=== PATIENT | male | born 1980 | race Hispanic/Latino ===

== ENCOUNTER 2017-03-27 07:54 | Inpatient (IN) | payer MEDICARE, MEDICAID ==
[2017-03-27 07:55] VITALS: BMI 25.7
[2017-03-27 08:06] VITALS: O2SAT 98
--- NOTE | 2017-03-27 08:13 | C.PDOC ---
History Of Present Illness 37 year old male who presents to the ER as a transfer from [facility] for psychiatric admission for suicidal ideation. Patient denies any physical complaints at this time. Time Seen by Provider: 03/27/17 08:00 Chief Complaint (Nursing): Psychiatric Evaluation History Per: Patient History/Exam Limitations: no limitations Onset/Duration Of Symptoms: Hrs Current Symptoms Are (Timing): Still Present Suicide/Self Injury Attempted (Context): None Modifying Factor(s): None Associated Symptoms: Suicidal Thoughts. denies: Depression, Suicidal Plan Involuntary Hold By: None Recent travel outside of the [place]: No Past Medical History Reviewed: Historical Data, Nursing Documentation, Vital Signs Vital Signs: Last Vital Signs Temp 97.9 F 03/27/17 08:00 Pulse 66 03/27/17 08:00 Resp 16 03/27/17 08:00 BP 100/60 03/27/17 08:00 Pulse Ox 98 03/27/17 08:13 - Medical History PMH: Anxiety, Bipolar Disorder, Depression, Schizophrenia Surgical History: No Surg Hx - [facility] Procedures MEDICATION MANAGEMENT (03/06/17) Family History: States: Unknown Family Hx - Social History Hx Alcohol Use: Yes Hx Substance Use: Yes - Immunization History Hx Tetanus Toxoid Vaccination: No Hx Influenza Vaccination: No Hx Pneumococcal Vaccination: No Review Of Systems Constitutional: Negative for: Fever, Chills Gastrointestinal: Negative for: Nausea, Vomiting, Diarrhea Psych: Positive for: Suicidal ideation Physical Exam - Physical Exam Appears: Non-toxic, No Acute Distress Skin: Normal Color, Warm, Dry Head: Atraumatic, Normacephalic Oral Mucosa: Moist Chest: Symmetrical, No Tenderness Cardiovascular: Rhythm Regular, No Murmur Respiratory: Normal Breath Sounds, No Rales, No Rhonchi, No Wheezing Gastrointestinal/Abdominal: Soft, No Tenderness Neurological/Psych: Oriented x3, Normal Speech, Normal Cognition ED Course And Treatment O2 Sat by Pulse Oximetry: 98 (Room air) Pulse Ox Interpretation: Normal Disposition Counseled Patient/Family Regarding: Studies Performed, Diagnosis, Need For Followup - Disposition Disposition: HOSPITALIZED Disposition Time: 08:11 Condition: GUARDED - Clinical Impression Clinical Impression: Schizophrenia, Suicidal ideations - Scribe Statement The provider has reviewed the documentation as recorded by the Scribalexander Levy All medical record entries made by the Scribe were at my direction and personally dictated by me. I have reviewed the chart and agree that the record accurately reflects my personal performance of the history, physical exam, medical decision making, and the department course for this patient. I have also personally directed, reviewed, and agree with the discharge instructions and disposition. Decision To Admit - Pt Status Changed To: Hospital Disposition Of: Inpatient - Admit Certification Admit to Inpatient:: After my assessment, the patient will require hospitalization for at least two midnights. This is because of the severity of symptoms shown, intensity of services needed, and/or the medical risk in this patient being treated as an outpatient. - InPatient: Physician Admission Certification: I certify that this patient requires 2 or more midnights of care for the following reason:: suicidal - . Bed Request Type: Psychiatry Admitting Physician: Rivka Rasmussen Patient Diagnosis: Schizophrenia, Suicidal ideations
--- NOTE | 2017-03-27 13:42 | PCM.BM ---
<Delma Perkins - Last Filed: 03/27/17 13:39> Treatment Plan Problems - Problems identified on initial assessmt Depression Date Initiated: 03/27/17 Time Initiated: 13:40 Assessment reference: NA Status: Active Treatment assets and liabiliti Patient Assests: cooperative, ADL independent, good support system, good past tx response, cognitively intact Patient Liabilities: live alone (Homeless), poor support system - Milieu Protocol Maintain good personal hygiene: daily Encourage regular showers Maintain personal safety: every shift Educate patient to report safety concerns to staff, every shift Monitor environment for contraband/sharps Medication safety: Monitor for expected outcome, potential side effects: every shift, Assess barriers to learning: every shift, Assess readiness for medication education: every shift <Rose John - Last Filed: 03/31/17 14:00> Family Contact Family involvement: Famliy/SO not involved - Goals for Treatment Patient goals for treatment: No comment Discharge/Continuing Care - Education Needs Education Needs: Patient Medication, Patient Coping Skills, Patient Community resources - Discharge Discharge Criteria: Tolerates medication w/o severe side effects, No longer exhibiting s/s of withdrawal, Reduction of target symptoms Discharge to:: Group Home - Treatment Team Participation Patient/Family/SO Statement: 03/31/17 13:59 Pt refused to attend treatment team. Discussed with Family/SO: No Was Patient/Family/SO present at Treatment Team Meeting: No <Nadya Cardenas - Last Filed: 04/01/17 13:37> - Diagnosis (1) Schizophrenia Status: Acute Interventions: 04/01/17 13:36 * Assess/adjust medications daily and /or as needed * Discuss risks, benefits, sided effects and alternatives of medications * See patient on an individual basis 7x/week to assess level of delusional thoughts/ideation
--- NOTE | 2017-03-27 21:59 | PCM.PSYCH ---
Initial Psychiatric Evaluation - Initial Psychiatric Evaluation Type of Admission: Voluntary Legal Status: Capacity Chief Complaint (in patient's own words): I have depression History of Present Illness and Precipitating Events: Patient is a single, homeless 37-year-old white male with a history of schizoaffective disorder as well as cocaine, heroin and alcohol abuse, multiple prior admissions- most recently discharged from [facility] in 02/2017 and [facility] 4 days ago . He was transferred from [facility] for psychiatric admission for suicidal ideation. His utox was positive for Cocaine. He stated that he is off from meds for few days and needs to be start on his meds. He stated that he is homeless. At the time of evaluation pt was not cooperative as he was sleeping for many hours. He reported that he is feeling safe. He denied SI, HI, intent or plan. At this time not able to assess him completely. He denied A/V/H, paranoid delusions Per chart review he was d/c from in 12/2016. SOCIAL HISTORY Patient was born and raised in [place]. He is not and has no children. Currently homeless. He graduated high school and he is unemployed Time spend 30 minutes Current Medications: Active Medications Generic Name Dose Route Start Last Admin Trade Name Freq PRN Reason Stop Dose Admin Hydroxyzine HCl 25 mg 03/27/17 14:44 Atarax PO Q6H PRN Anxiety Ibuprofen 600 mg 03/27/17 14:43 Motrin Tab PO TID PRN Pain, Mild (1-3) Olanzapine 10 mg 03/27/17 14:45 03/27/17 17:49 Zyprexa PO 10 mg DAILY CURTIS Administration Oxcarbazepine 300 mg 03/27/17 18:00 03/27/17 17:47 Trileptal PO 300 mg BID CURTIS Administration Sertraline HCl 100 mg 03/27/17 14:45 03/27/17 17:46 Zoloft PO 100 mg DAILY CURTIS Administration Trazodone HCl 50 mg 03/27/17 22:00 Desyrel PO HS PRN Insomnia Past Psychiatric History - Past Psychiatric History Prior Psychiatric Treatment: multiple prior admission including [facility], [facility]: [facility], [facility] Duration: days to weeks Nature of Treatment: stabilization on meds History of Abuse: denied History of ETOH/Drug Use: Patient reports that he has been using cocaine for a couple months and smoking weed for many years. He denies any history of heroin or alcohol problems. Reports a history of being in rehab for weed use however this was a very long time ago. Patient smokes two packs of cigarettes daily. Patient was apprised about the morbidity and mortality risks of continued tobacco/drug use. He was offered a patch which he agreed to to help with nicotine withdrawal/abstinence History of Family Illness: denied Pertinent Medical Hx (Current Medical&Sleep Prob, Allergies): Allergies Allergy/AdvReac Type Severity Reaction Status Date / Time No Known Allergies Allergy Verified 03/27/17 08:06 Nicotine 21 mg/24 hr [Nicoderm Cq] 1 patch TD DAILY #14 patch 03/09/17 OLANZapine [Zyprexa] 10 mg PO AMHS #14 tab 03/09/17 OXcarbazepine [Trileptal] 300 mg PO BID #30 tab 03/09/17 Sertraline [Zoloft] 100 mg PO BID #30 tab 03/09/17 Zaleplon [Sonata] 10 mg PO HS PRN #14 cap 03/09/17 clonazePAM [Klonopin] 0.5 mg PO DAILY #14 tab 03/09/17 Review of Systems - Review of Systems All systems: reviewed and no additional remarkable complaints except (please see HPI) Mental Status Examination - Personal Presentation Personal Presentation: Looks stated age - Affect Affect: Constricted - Motor Activity Motor Activity: Calm Additional comments: sleeping arousable, uncooperative - Reliability in Providing Information Reliability in Providing Information: Other Additional comments: Sleepy - Speech Speech: Organized - Mood Mood: Depressed, Anxious - Formal Thought Process Formal Thought Process: No Impairment Additional comments: Unable to assess - Hallucinations/Delusions Delusions: Other (unable to assess) - Obsessions/Compulsions Obsessions: No Compulsions: No - Cognitive Functions Estimate of Intelligence: Average Judgement: Imparied, as evidence by: Poor judgement, Imparied, as evidence by: Lack of insight into illness Additional comments: unable to assess - Risk Additional comments: denied SI, intent or plan, Substance abuse issues - Limitations Limitations: Other (homeless, unemployed) DSM 5 DX - DSM 5 DSM 5 Diagnosis: Schizoaffective Disorder by history Crack Use Disorder Heroin Use Disorder Alcohol Use Disorder Substance Induced Mood Disorder - Recommended/Plan of Treatment Treatment Recommendations and Plan of Treatment: group, milieu and supportive Zoloft 100 mg po bid for depression and anxiety Klonopin 0.5 mg po daily for anxiety Zyprexa 10 mg HS for hx of psychosis/disorganization Started trileptal and prolixin, monitor progress and re-initiate if clinically indicated medication benefits and s/e discussed with pt. he verbalized understanding and in agreement with current treatment and plan. Lab results viewed Projected ELOS: 5-7 days Prognosis: fair with meds Discharge Plan and Discharge Criteria: per - Smoking Cessation Smoking Cessation Initiated: No
--- NOTE | 2017-03-28 21:11 | PCM.PYCHPN ---
Psychiatric Progress Note - Psychiatric Progress Note Patient seen today, length of contact: 15 minutes Patient Chief Complaint: I have depression Problems Identified/Issues Discussed: Patient was seen. Chart was reviewed important content noted. Nurse input received. Patient stated that meds are not helping him and he wants to increase his Zyprexa dose as well as wants to start on Perphenazine. other alfonso no events overnight Patient slept well and is eating well. Patient denies any depressive symptoms. Denies suicidal or homicidal ideations. Patient does not report hallucinations. No delusions elicited. No paranoia elicited. Patient has remained in good clinical and behavioral control. Diagnostic Results: no new labs DSM 5 Symptoms Update: Schizoaffective Disorder by history Crack Use Disorder Heroin Use Disorder Alcohol Use Disorder Substance Induced Mood Disorder Medication Change: Yes (Zyprexa increase to 10 mg BID) Medical Record Reviewed: Yes Mental Status Examination - Cognitive Function Orientation: Person, Place, Situation, Time Memory: Intact Attention: WNL Concentration: WNL Association: WNL Fund of Knowledge: WNL - Mood Mood: Depressed - Affect Affect: Constricted - Speech Speech: Appropriate - Formal Thought Process Formal Thought Process: No Impairment Psychotic Thoughts and Behaviors: he does not appeared internally preoccupied or responding to stimuli - Suicidal Ideation Suicidal Ideation: No - Homicidal Ideation Homicidal Ideation: No Goal/Treatment Plan - Goal/Treatment Plan Need for Continued Stay: Discharge may exacerbated symptoms Progress Toward Problem(s) and Goals/Treatment Plan: group, milieu and supportive Zoloft 100 mg po for depression and anxiety Klonopin 0.5 mg po daily for anxiety Zyprexaincrease to 10 mg Q12 hr for hx of psychosis/disorganization Prolixin not started. Psychoeducation was provided regarding antipsychotic medication and its side effects especially Metabolic syndrome. medication benefits and s/e discussed with pt. he verbalized understanding and in agreement with current treatment and plan.
--- NOTE | 2017-03-29 14:25 | PCM.PYCHPN ---
Psychiatric Progress Note - Psychiatric Progress Note Patient seen today, length of contact: 15 minutes Patient Chief Complaint: I am hearing voices.' ' Problems Identified/Issues Discussed: Patient seen and evaluated, chart reviewed and discussed with the nurse. Patient remained disorganized and internally preoccupied. Patient remained isolated, confined and withdrawn. He still reports of hearing voices. Patient still appears paranoid and delusional. He reports depressed mood and feelings of hopelessness and helplessness. He is taking medication and denies any side effects. He needs some time for stabilization. Supportive therapy and psychoeducation were given. Medication Change: Yes (Zyprexa increase to 10 mg BID) Medical Record Reviewed: Yes Mental Status Examination - Cognitive Function Orientation: Person, Place, Situation, Time Memory: Intact Attention: WNL Concentration: Poor Association: Loose Fund of Knowledge: Poor - Mood Mood: Depressed, Anxious - Affect Affect: Constricted - Speech Speech: Appropriate - Formal Thought Process Formal Thought Process: Hallucinations, Delusions, Paranoia, Loosening of associations - Suicidal Ideation Suicidal Ideation: No - Homicidal Ideation Homicidal Ideation: No Goal/Treatment Plan - Goal/Treatment Plan Need for Continued Stay: Discharge may exacerbated symptoms, Severe functional impairment Progress Toward Problem(s) and Goals/Treatment Plan: Schizoaffective disorder bipolar type Group, milieu and supportive therapy Zoloft 100 mg po for depression and anxiety Klonopin 0.5 mg po daily for anxiety Zyprexa increase to 10 mg Q12 hr for hx of psychosis/disorganization Psychoeducation was provided regarding antipsychotic medication and its side effects especially Metabolic syndrome. Medication benefits and s/e discussed with pt. he verbalized understanding and in agreement with current treatment and plan. - Smoking Cessation Smoking Cessation Initiated: No
--- NOTE | 2017-03-30 12:33 | PCM.PYCHPN ---
Psychiatric Progress Note - Psychiatric Progress Note Patient seen today, length of contact: 15 minutes Patient Chief Complaint: "I feel tried." Problems Identified/Issues Discussed: Patient seen and evaluated, chart reviewed and discussed with the nurse. Today patient appeared a bit more organized but remained isolated, paranoid and delusional. He still reports of irritability and agitation. He remained confined and withdrawn. He is not attending any groups and meetings. He is still reporting depressed mood. However he is taking medications and denies any side effects. Today he remained adamant about Prolixin. He needs some time for stabilization. Supportive therapy and psychoeducation were given. Medication Change: Yes (Start Prolixin) Medical Record Reviewed: Yes Mental Status Examination - Cognitive Function Orientation: Person, Place, Situation, Time Memory: Intact Attention: WNL Concentration: Poor Association: Loose Fund of Knowledge: WNL - Mood Mood: Depressed, Anxious - Affect Affect: Constricted - Speech Speech: Appropriate, Soft - Formal Thought Process Formal Thought Process: Hallucinations, Delusions, Paranoia, Loosening of associations - Suicidal Ideation Suicidal Ideation: No - Homicidal Ideation Homicidal Ideation: No Goal/Treatment Plan - Goal/Treatment Plan Need for Continued Stay: Discharge may exacerbated symptoms, Severe functional impairment Progress Toward Problem(s) and Goals/Treatment Plan: Schizoaffective disorder bipolar type Group, milieu and supportive therapy Zoloft 100 mg po for depression and anxiety Klonopin 0.5 mg po daily for anxiety Reduce Zyprexa to 5 mg Q12 hr for hx of psychosis/disorganization Prolixin 5 mg by mouth twice a day Oxcarbazepine 300 mg by mouth twice a day Psychoeducation was provided regarding antipsychotic medication and its side effects especially Metabolic syndrome. Medication benefits and s/e discussed with pt. he verbalized understanding and in agreement with current treatment and plan. - Smoking Cessation Smoking Cessation Initiated: No
--- NOTE | 2017-03-31 14:03 | PCM.PYCHPN ---
Psychiatric Progress Note - Psychiatric Progress Note Patient seen today, length of contact: 15 minutes Patient Chief Complaint: "I feel a little better." Problems Identified/Issues Discussed: Patient seen and evaluated, chart reviewed and discussed with the nurse. The pt still reports depressed mood, but states that it is improving. The pt reports eating well and sleeping well. The pt denies suicidal or homicidal ideation's. The pt denies hallucinations and seems less paranoid and delusional. The pt denies hearing voices He is taking medications and denies any side effects. He states that medications are helping. He needs some time for stabilization. Supportive therapy and psychoeducation were given. Medication Change: Yes Medical Record Reviewed: Yes Mental Status Examination - Cognitive Function Orientation: Person, Place, Situation, Time Memory: Intact Attention: WNL Concentration: Poor Association: Loose Fund of Knowledge: WNL - Mood Mood: Depressed, Anxious - Affect Affect: Constricted - Speech Speech: Appropriate, Soft - Formal Thought Process Formal Thought Process: Paranoia - Suicidal Ideation Suicidal Ideation: No - Homicidal Ideation Homicidal Ideation: No Goal/Treatment Plan - Goal/Treatment Plan Need for Continued Stay: Discharge may exacerbated symptoms, Severe functional impairment Progress Toward Problem(s) and Goals/Treatment Plan: Schizoaffective disorder bipolar type Group, milieu and supportive therapy Zoloft 100 mg po for depression and anxiety Klonopin 0.5 mg po daily for anxiety Reduce Zyprexa to 5 mg Q12 hr for hx of psychosis/disorganization Prolixin 5 mg by mouth twice a day Oxcarbazepine 300 mg by mouth twice a day Psychoeducation was provided regarding antipsychotic medication and its side effects especially Metabolic syndrome. Medication benefits and s/e discussed with pt. he verbalized understanding and in agreement with current treatment and plan. - Smoking Cessation Smoking Cessation Initiated: No
[2017-04-01 07:26] VITALS: BP 96/63; PULSE 88; RESP 20; TEMP 98.1
--- NOTE | 2017-04-01 11:24 | PCM.PYCHDC ---
Mental Status Examination - Mental Status Examination Orientation: Person, Place, Situation, Time Memory: Intact Mood: Neutral Affect: Constricted Speech: Soft Attention: WNL Concentration: WNL Association: WNL Fund of Knowledge: WNL Formal Thought Process: No Impairment Description of patient's judgement and insight: good, fair Psychotic Thoughts and Behaviors: denies any AVH Suicidal Ideation: No Current Homicidal Ideation?: No Discharge Summary - Discharge Note Reason for Hospitalization: Patient is a single, homeless 37-year-old white male with a history of schizoaffective disorder as well as cocaine, heroin and alcohol abuse, multiple prior admissions- most recently discharged from [facility] in 02/2017 and [facility] 4 days ago . He was transferred from [facility] for psychiatric admission for suicidal ideation. His utox was positive for Cocaine. He stated that he is off from meds for few days and needs to be start on his meds. He stated that he is homeless. At the time of evaluation pt was not cooperative as he was sleeping for many hours. He reported that he is feeling safe. He denied SI, HI, intent or plan. At this time not able to assess him completely. He denied A/V/H, paranoid delusions Per chart review he was d/c from in 12/2016. Psychiatric History (includes Medical, Family, Personal Hx): stabilization on meds Consultations:: List each consultation separately and include: 1. Reason for request. 2. Findings. 3. Follow-up Summary of Hospital Course include:: 1. Description of specific treatment plan utilized for patients during their course of treatmen. 2. Summarize the time- course for resolution of acute symptoms and/or regressed behaviors. 3. Describe issues identified and worked on during hospitalization. 4. Describe medication utilized. 5. Describe medical problems identified and treated. 6. Reassessment of suicide risk Summary of Hospital Course: During the course of his stay, patient (pt) started progressively improving and he no longer remained irritable, depressed, and paranoid. His paranoia and mood were improved and he started attending groups and meetings and started socializing. Patient denied any feelings of hopelessness, helplessness, and worthlessness, denied any problem with the sleep or appetite, denied suicidal ideation or homicidal ideation. Pt denied any auditory or visual hallucinations. Some changes were made in his current medications and patient was discharged on following medications. He tolerated these medications very well and denied any side effects. CBT and KS were used. - Final Diagnosis (DSM 5) Condition upon Discharge: GUARDED DSM 5: Schizoaffective disorder bipolar type Disposition: HOME/ ROUTINE Follow-up Treatment Plan: Education: Pt was educated and counseled about the risks and benefits of taking and not taking medications. Pt was educated and counseled about the risks of drinking and abusing drugs. Pt was educated and counseled to go to the ER or call 911 if pt develop suicidal ideation or homicidal ideation, worsening of symptoms or severe side effects of the meds. Prescriptions/Medication Reconciliation: Benztropine [Cogentin] 1 mg PO BID 14 Days fluPHENAZine [Prolixin] 10 mg PO BID 14 Days OXcarbazepine [Trileptal] 300 mg PO BID 14 Days traZODone [Desyrel] 100 mg PO HS PRN 14 Days PRN Reason: Insomnia - Smoking Cessation Smoking Cessation Medication prescribed: No - Antipsychotic Medications Pt discharged on 2 or more routine antipsychotic medications: No
== END 2017-04-01 12:35 | disposition home or self-care (01) | DRG 885 ==
LOC: C.ER 07:54 → C.5E 08:13
PROVIDERS: ADMIT Psychiatry & Neurology Psychiatry; ATTEND Psychiatry & Neurology Psychiatry
PROC: GZ3ZZZZ Medication Management (ICD-10-PCS; principal; 2017-03-27)
PROC: GZHZZZZ Group Psychotherapy (ICD-10-PCS; 2017-03-27)
PROC: GZ56ZZZ Individual Psychotherapy, Supportive (ICD-10-PCS; 2017-03-27)
DX: F25.0 Schizoaffective disorder, bipolar type (principal); R45.851 Suicidal ideations; F14.10 Cocaine abuse, uncomplicated; F11.10 Opioid abuse, uncomplicated; F10.10 Alcohol abuse, uncomplicated; F41.9 Anxiety disorder, unspecified; F19.14 Other psychoactive substance abuse with psychoactive substance-induced mood disorder; F17.210 Nicotine dependence, cigarettes, uncomplicated; Z59.0 Homelessness